=== PATIENT | male | born 1990 | race Caucasian/White ===

== ENCOUNTER 2022-06-02 06:11 | Day surgery (SDC) | payer BC ==
[2022-06-01 13:07] VITALS: BMI 28.5
[2022-06-02] MEDS ORDERED: Bupivacaine 0.25% HCL 30 ML VIAL ONE (07:28)
[2022-06-02] MEDS ORDERED: Iopamidol 0 ML ONE (07:29)
[2022-06-02] MEDS ORDERED: EPINEPHrine 1 MG/ML AMP ONE (07:29)
[2022-06-02] MEDS ORDERED: CEFAZOLIN 2 GM VIAL ONE (07:54)
[2022-06-02] MEDS ORDERED: Midazolam HCl 2 mg/2 ml Vial ONE (07:56)
[2022-06-02] MEDS ORDERED: PROPOFOL 20 ML ONE ×2 (07:56)
[2022-06-02] MEDS ORDERED: Ondansetron PF 4 MG/2 ML Vial ONE (07:56)
[2022-06-02] MEDS ORDERED: Dexamethasone 4 mg/ml Vial ONE (07:56)
[2022-06-02] MEDS ORDERED: Rocuronium Bromide 10 MG/ML (10ML VIAL) ONE (07:56)
[2022-06-02] MEDS ORDERED: SUGAMMADEX SODIUM 200 MG/2 ML VIAL ONE (07:58)
[2022-06-02] MEDS ORDERED: HYDROmorphone 0.5 MG/0.5 ML SYRINGE ONE ×2 (07:59)
[2022-06-02] MEDS ORDERED: Esmolol 100 MG/10 ML VIAL ONE (08:17)
[2022-06-02] MEDS ORDERED: Ketorolac Tromethamine 30 MG/ML VIAL ONE (08:28)
[2022-06-02] MEDS ORDERED: Fentanyl 100 MCG/2 ML VIAL ONE (09:16)
== END 2022-06-02 10:00 | disposition home or self-care (01) ==
LOC: CSHSDC 06:11
PROVIDERS: ATTEND Surgery
PROC: 0FT44ZZ Resection of Gallbladder, Percutaneous Endoscopic Approach (ICD-10-PCS; principal; 2022-06-02)
DX: K80.10 Calculus of gallbladder with chronic cholecystitis without obstruction (principal); F17.210 Nicotine dependence, cigarettes, uncomplicated; Z79.899 Other long term (current) drug therapy; Z88.8 Allergy status to other drugs, medicaments and biological substances; Z98.890 Other specified postprocedural states
CPT/HCPCS: 88304; C1713; J0171; J1100; J1170; J1885; J2250; J2405; J2704; J3010; Q9967; S0020